=== PATIENT | male | born 1995 | race African-American/Black ===

== ENCOUNTER 2020-03-25 06:55 | Emergency (ER) | payer OTHER, SELFPAY ==
[2020-03-25 07:00] VITALS: BP 114/53; PULSE 95; RESP 16; TEMP 36.8; O2SAT 98; BMI 30.7
--- NOTE | 2020-03-25 07:02 | ED_ITS ---
HPI - Seizure General Chief Complaint: Seizure Stated Complaint: siezure Time Seen by Provider: 03/25/20 07:01 Source: patient and EMS Mode of arrival: EMS Limitations: no limitations History of Present Illness MD complaint: seizure Onset (ago): minute(s) (just [employer]) Description of Episode: loss of consciousness and tonic-clonic movement -: minutes(s) Witnessed: Yes - by Bystander Trauma: No Seizure History: Yes Place: Home Possible Precipitating Event: other (forgot to take his seizure medications keppra and topiramate for a couple of days - has enough Rx at home) Associated symptoms: denies other symptoms Treatments prior to arrival: none Related Data Allergies Allergy/AdvReac Type Severity Reaction Status Date / Time No Known Allergies Allergy Verified 03/25/20 07:01 Review of Systems Review of Systems: Constitutional : No Fever, No Chills, No Fatigue ENT/Mouth : No sore throat, No Rhinorrhea Eyes: No Eye Pain, No Swelling, No Redness Cardiovascular : No Chest Pain, No SOB, No Dyspnea on Exertion Respiratory : No Cough, No Sputum Gastrointestinal : No Nausea, No Vomiting, No Diarrhea, No abdominal Pain Genitourinary : No Dysuria, No Urinary Frequency, No Hematuria, Musculoskeletal : No joint pain, No Myalgias, No Joint Swelling Skin : No Skin Lesions, No rash Neuro : No Weakness, No Numbness, No Dizziness, no Headache, pos seizure All other systems reviewed and are negative [facility] Past Medical History Attestation statement: The following information was validated with the patient. Medical History Asthma Seizure Social History Social History (Updated 03/25/20 @ 07:04 by Daly Hein DO) Alcohol intake: never Smoking Status: Never smoker Use of substances other than those prescribed or required for medical reasons: Yes Substance Use Type: Marijuana Advance Directives: No Advance Directives Information Provided: No Physical Exam Vital Signs: Vital Signs: Last Vital Signs Temp 98.2 F 03/25/20 07:00 Pulse 95 03/25/20 07:00 Resp 16 03/25/20 07:00 BP 114/53 L 03/25/20 07:00 Pulse Ox 98 03/25/20 07:00 Body Mass Index 30.7 Appearance: Alert. Oriented X3. No acute distress. Eyes: Pupils equal, round and reactive to light. ENT: Pharynx normal. abrasion R side of tongue Neck: Normal inspection. Neck supple. CVS: Normal heart rate and rhythm. Pulses normal. Respiratory: No respiratory distress. Breath sounds normal. Abdomen: Soft and non-tender. Skin: Skin warm and dry. Normal skin color. Normal skin turgor. Extremities: No lower extremity edema. No calf ttp Neuro: Oriented X 3. No motor deficit. No sensory deficit. Course Course Course Narrative: back to baseline GCS 15 after medications anticipate DC home MDM - Seizure MDM Narrative Medical decision making narrative: 24 yo male on keppra and topiramate for seizures has not taken his medications in 2 days because he forgot had a seizure in bed - no trauma other than mild abrasion to R tongue, will load with keppra and observe, anticipate DC, states he has enough Rx at home and he was just not compliant Discharge Plan Discharge Clinical Impression: Generalized seizure Patient Disposition: Home, Self-Care Instructions: Epilepsy (ED) Additional Instructions: return to ED for any worsening symptoms or concerns please take your mediations you were given a load of IV keppra this AM please wait to take your keppra tonight follow up with your Neurologist Stand Alone Forms: Work/School Release
[2020-03-25] MEDS: levETIRAcetam in NaCl (iso-os) 1,500 MG/100 ML PIGGYBACK 400 MG IV (07:20)
[2020-03-25 08:02] LABS: Glucose, Whole Blood 92 mg/dL (60-115)
== END 2020-03-25 08:39 | disposition home or self-care (01) ==
PROVIDERS: Emergency Provider Emergency Medicine
DX: R56.9 Unspecified convulsions (principal); F12.90 Cannabis use, unspecified, uncomplicated
CPT/HCPCS: 82947; 99283; 99284; J1953